=== PATIENT | male | born 2000 | race Caucasian/White ===

== ENCOUNTER 2021-03-22 10:44 | Emergency (ER) | payer OTHER ==
[~2021-03-22] VITALS: Ht 182.9 cm; Wt 67.1 kg
[2021-03-22 11:24] LABS: ABSOLUTE NEUTROPHILS 5.7 thou/uL (1.4-8.2); BASOPHILS 0.6 % (0.0-2.0); EOSINOPHILS 0.5 % (0.0-3.0); HEMATOCRIT 45.5 % (42.0-52.0); HEMOGLOBIN 15.5 gm/dL (14.0-18.0); LYMPHOCYTES 19.2 % (24.0-44.0); MCH 34.1 pg (26.0-34.0); MCHC 34.1 g/dL (28.0-37.0); PLATELET COUNT 212 thou/uL (150-400); POLYS 73.7 % (36.0-66.0); RBC 4.55 mil/uL (4.50-6.00); WBC 7.7 thou/uL (4.0-11.0)
[2021-03-22 11:32] LABS: ANION GAP 12 mmol/L (7-16); BUN 12 mg/dL (7-18); CALCIUM 9.7 mg/dL (8.5-10.1); CHLORIDE 104 mmol/L (98-107); CO2 26 mmol/L (21-32); CREATININE 1.1 mg/dL (0.7-1.3); GLUCOSE 97 mg/dL (74-106); POTASSIUM 4.4 mmol/L (3.5-5.1); SODIUM 142 mmol/L (136-145)
[2021-03-22 11:42] LABS: ALBUMIN 4.6 g/dL (3.4-5.0); SGOT 31 U/L (15-37); SGPT 37 U/L (16-63); TOTAL BILIRUBIN 0.4 mg/dL (0.2-1.0); TOTAL PROTEIN 7.8 g/dL (6.4-8.2); TROPONIN-I <0.06 ng/mL (<0.06)
[2021-03-22] MEDS ORDERED: METHOCARBAMOL500 M2 PO (11:59)
[2021-03-22] MEDS ORDERED: MEDROLDOSEPACK PO (11:59)
[2021-03-22 12:19] VITALS: BP 120/74
--- NOTE | 2021-03-22 12:57 | EKG ---
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 : 2000 Requested By: Marley Morgan Order Number: [id number] : Adrián Silva Measurements Intervals [place] Rate: 111 P: 82 AK: 125 QRS: 89 QRSD: 102 T: 40 QT: 319 QTc: 434 Interpretive Statements Sinus tachycardia Biatrial enlargement Borderline T wave abnormalities J Point elevation V1-3 No previous ECG available for comparison Electronically Signed On 03-22-2021 12:57:07 CDT by Adrián Silva [email or web address] <ELECTRONICALLY SIGNED> By: Adrián Silva MD, [facility] 03/22/21 1257 1100 Travis Silva MD, FACC /EPI
== END 2021-03-22 12:32 | disposition home or self-care (01) ==
LOC: ER 10:44
PROVIDERS: Nurse Practitioner Family
DX: M94.0 Chondrocostal junction syndrome [Tietze] (principal); Z88.6 Allergy status to analgesic agent

== ENCOUNTER 2021-07-09 08:04 | Emergency (ER) | payer OTHER ==
[~2021-07-09] VITALS: Ht 182.9 cm; Wt 67.6 kg
[~2021-07-09 08:04] MED LIST: MEDROLDOSEPACK PO; METHOCARBAMOL500 M2 PO
[2021-07-09 08:16] VITALS: BP 129/63
== END 2021-07-09 09:11 | disposition home or self-care (01) ==
LOC: ER 08:04
DX: S60.463A Insect bite (nonvenomous) of left middle finger, initial encounter (principal); Z88.6 Allergy status to analgesic agent; W57.XXXA Bitten or stung by nonvenomous insect and other nonvenomous arthropods, initial encounter; Y93.89 Activity, other specified; Y92.89 Other specified places as the place of occurrence of the external cause; Y99.8 Other external cause status